=== PATIENT | male | born 1975 | race African-American/Black ===

== ENCOUNTER 2025-06-03 18:30 | Emergency (ER) | payer BC, SELFPAY ==
[2025-06-03 19:02] LABS: #Basophils 0.07 10x3/uL (0.0-0.2); #Eosinophils 0.09 10x3/uL (0.0-0.7); #Monocytes 0.99 10x3/uL (0.11-0.59); #Neutrophils 14.53 10x3/uL (1.40-6.50); %Basophils 0.4 % (0.0-1.0); %Eosinophils 0.5 % (0.0-10.0); %Lymphocytes 8.7 % (21.0-51.0); %Monocytes 5.7 % (0.0-10.0); %Neutrophils 83.4 % (42.0-75.0); Hematocrit 43.0 % (42.0-52.0); Hemoglobin 13.2 g/dL (14.0-18.0); Mean Corpuscular Hemoglobin 30.4 pg (27.0-31.0); Mean Corpuscular Volume 99.1 fL (78.0-98.0); Platelet Count 308 10x3/uL (130-400); Red Blood Cell (RBC) Count 4.34 mill/uL (4.70-6.10); White Blood Cell (WBC) Count 17.42 10x3/uL (4.8-10.8)
[2025-06-03 19:25] LABS: ALT (SGPT) 15 U/L (Less than 45); AST (SGOT) 24 U/L (11-34); Albumin 4.3 g/dL (3.1-4.5); Alkaline Phosphatase 63 U/L (40-110); Anion Gap 25 mmol/L (10-20); BUN (Urea Nitrogen) 14 mg/dL (8.9-20.6); Bilirubin, Total 0.4 mg/dL (0.3-1.2); CK (CPK) 156 U/L (30-200); Calc. Creatinine Clearance 0 mL/min (70-130); Calcium 9.5 mg/dL (7.8-10.44); Carbon Dioxide 21 mmol/L (22-29); Chloride 105 mmol/L (98-107); Globulin 4.3 g/dL (2.4-3.5); Glucose 242 mg/dL (70-105); Potassium 4.8 mmol/L (3.5-5.1); Sodium 146 mmol/L (136-145)
[2025-06-03 19:26] LABS: Acetaminophen Less than 10 mcg/mL (Less than 10); Salicylate Less than 8.0 mg/dL (Less than 8.0)
[2025-06-03 23:51] LABS: Anion Gap 16 mmol/L (10-20); BUN (Urea Nitrogen) 12 mg/dL (8.9-20.6); Calc. Creatinine Clearance 0 mL/min (70-130); Calcium 8.4 mg/dL (7.8-10.44); Carbon Dioxide 21 mmol/L (22-29); Chloride 104 mmol/L (98-107); Glucose 86 mg/dL (70-105); Potassium 4.8 mmol/L (3.5-5.1); Sodium 136 mmol/L (136-145)
== END 2025-06-03 23:52 | disposition home or self-care (01) ==
LOC: ERS 18:30 → EDBD 18:30 → ERS 23:52
DX: T40.2X1A Poisoning by other opioids, accidental (unintentional), initial encounter (principal); F10.10 Alcohol abuse, uncomplicated; E86.0 Dehydration; I10 Essential (primary) hypertension; F17.210 Nicotine dependence, cigarettes, uncomplicated
CPT/HCPCS: 36415; 36416; 70450; 71045; 80053; 80307; 82550; 83605; 84443; 84484; 85025; 93005; 96360; 96361; J2310